=== PATIENT | male | born 1955 | race Caucasian/White ===

== ENCOUNTER 2021-03-15 10:43 | Emergency (ER) | payer OTHER ==
[2021-03-15 11:27] LABS: BASOPHIL 0.5 % (0-2); EOSINOPHIL 1.4 % (0-5); HCT 47.8 % (42.0-52.0); HGB 16.5 g/dl (13.2-18.0); LYMPHOCYTE 22.4 % (15-48); MCHC 34.5 g/dL (32.0-36.0); MCV 95.6 fL (78.0-100.0); MONOCYTE 8.6 % (0-12); NEUTROPHIL 66.5 % (41-80); NRBC 0; PLT 189 K/uL (150-400); RDW 12.3 % (11.5-14.0)
[2021-03-15 11:33] LABS: INR 0.99 (0.9-1.2); PROTHROMBIN TIME 12.5 SECONDS (11.8-13.4); PTT 26.9 SECONDS (24.4-34.7)
[2021-03-15 11:48] LABS: ALBUMIN 3.8 g/dL (3.4-5.0); BILIRUBIN - TOTAL 0.7 mg/dL (0.2-1.0); CREATININE 1.13 mg/dL (0.67-1.17); GLOBULIN (CALCULATION) 3.1 g/dL; POTASSIUM 4.5 mmol/L (3.5-5.1); TOTAL PROTEIN 6.9 g/dL (6.4-8.2)
== END 2021-03-15 13:28 | disposition home or self-care (01) ==
LOC: FER 10:43
PROVIDERS: Emergency Medicine
DX: I63.9 Cerebral infarction, unspecified (principal); R53.1 Weakness; R47.9 Unspecified speech disturbances; R29.700 NIHSS score 0; F17.210 Nicotine dependence, cigarettes, uncomplicated; Z86.73 Personal history of transient ischemic attack (TIA), and cerebral infarction without residual deficits
CPT/HCPCS: 36415; 70450; 70551; 71045; 80053; 84702; 85025; 85610; 85730; 93005